=== PATIENT | female | born 1970 | race Caucasian/White ===

== ENCOUNTER 2021-03-15 14:34 | Emergency (ER) | payer BC, SELFPAY ==
[2021-03-15 15:49] VITALS: BP 145/83; PULSE 96; RESP 16; TEMP 37; O2SAT 100
--- NOTE | 2021-03-15 17:30 | ED.SKABFB ---
HPI - Skin/Abscess/Foreign Bdy General Chief complaint: Skin/Abscess/Foreign Body Stated complaint: scalp itching Time Seen by Provider: 03/15/21 17:20 Source: patient and RN notes reviewed Mode of arrival: ambulatory Limitations: no limitations History of Present Illness HPI narrative: Patient presents today complaining of several month history of itching scalp. Also states that her hair feels like jelly even after washing it several times. States that her daughter saw a very long and thin worm underneath her scalp that was moving and came in for evaluation. She has already tried treating herself multiple times for lice and has used multiple medicated shampoos without relief of symptoms. Related Data Allergies Allergy/AdvReac Type Severity Reaction Status Date / Time NKDA Allergy Mild Uncoded 09/28/08 14:42 Review of Systems Review of Systems: CONSTITUTIONAL: Denies body aches, fever, chills, or sweats. EYES: Denies visual changes, redness, or discharge. ENT: Denies rhinorrhea, congestion, sore throat, or otalgia. CARDIOVASCULAR: Denies chest pain, palpitations, or edema. RESPIRATORY: Denies cough or dyspnea. GASTROINTESTINAL: Denies abdominal pain, nausea, vomiting, or diarrhea. GENITOURINARY: Denies dysuria or hematuria. SKIN: Denies rash, or wounds.+ Itching scalp MUSCULOSKELETAL: Denies back pain, joint pain, or myalgia. NEUROLOGIC: Denies headache, numbness, tingling, or weakness. PSYCH: Denies depression or anxiety. PMFSH Comments At time of signature, I have reviewed and agree with nursing past medical, surgical, social and family history unless otherwise noted. Please see nursing chart for further information. There is no relevant family history pertinent to the presenting complaint Exam Narrative: GENERAL: Unkempt. HEAD: Normocephalic, atraumatic. EYES: EOMI. No redness or drainage. Conjunctivae normal. ENT: Mucous membranes pink and moist. NECK: Normal AROM. CHEST: No respiratory distress. EXTREMITIES: Normal range of motion. No edema. SKIN: Warm, dry, no rash. Capillary refill normal. Normal skin turgor. Scalp in good condition. No lice noted. No other abnormalities noted on the hair shafts or scalp. When I told patient I did not find anything, she states, It must be the devil. Now you think I'm crazy. NEURO: No focal deficits. Alert and oriented x3. Gait steady. PSYCH: Normal affect. No signs of depression or anxiety. Course Course Emergency Course: Patient walked out without her discharge instructions. I did instruct her to follow-up with a locket maker prior to her leaving. Level of Care: Express Care Visit Vital Signs Vital signs: Vital Signs Temperature 98.6 F 03/15/21 15:49 Pulse Rate 96 03/15/21 15:49 Respiratory Rate 16 03/15/21 15:49 Blood Pressure 145/83 H 03/15/21 15:49 Pulse Oximetry 100 03/15/21 15:49 Temperature 98.6 F 03/15/21 15:49 Pulse Rate 96 03/15/21 15:49 Respiratory Rate 16 03/15/21 15:49 Blood Pressure 145/83 H 03/15/21 15:49 Pulse Oximetry 100 03/15/21 15:49 Reviewed. Pt has been instructed to follow up with her PCP regarding her elevated blood pressure today. MDM - Skin/Abscess/Foreign Bdy Differential Diagnosis Differential diagnosis: Likely other (Lice, mites, psychiatric issues, eczema) Critical Care Time Critical Care Time Critical Care Time: No Discharge Plan Discharge Clinical Impression: Itchy scalp Patient Disposition: Home, Self-Care Condition: Stable Instructions: Antibiotic Form Additional Instructions: Your exam is normal today. It is recommended that you follow-up with a locket maker regarding your symptoms. Your blood pressure was elevated above 120/80 today at Urgent Care. This puts you above the threshold for follow up. Please schedule a followup visit with your personal physician as soon as possible, for further evaluation and treatment. Even blood pressure exceeding 120/80 m
== END 2021-03-15 17:35 | disposition home or self-care (01) ==
PROVIDERS: Emergency Provider Nurse Practitioner
DX: L29.9 Pruritus, unspecified (principal)
CPT/HCPCS: 99211; G0463